=== PATIENT | male | born 1945 | race Two or more races ===

== ENCOUNTER 2019-08-23 09:24 | Emergency (ER) | payer SELFPAY ==
[~2019-08-23] VITALS: Ht 170.2 cm; Wt 63.5 kg
[2019-08-23] MEDS ORDERED: cloNIDine HCL 0.1 MG TAB PO ONE (10:30)
[2019-08-23 12:38] VITALS: BP 148/73
== END 2019-08-23 12:39 | disposition home or self-care (01) ==
LOC: EDBD 09:24 → ER 09:24
DX: S09.90XA Unspecified injury of head, initial encounter (principal); I10 Essential (primary) hypertension; S40.811A Abrasion of right upper arm, initial encounter; W19.XXXA Unspecified fall, initial encounter; Y93.89 Activity, other specified; Y99.8 Other external cause status; Y92.89 Other specified places as the place of occurrence of the external cause
CPT/HCPCS: 70450